=== PATIENT | male | born 1950 | race Caucasian/White ===

== ENCOUNTER 2018-11-21 08:20 | Outpatient (REF) | payer MEDICARE, SELFPAY ==
[2018-11-21 21:18] LABS: BUN 24 mg/dL (7-18); CREATININE 1.64 mg/dL (0.70-1.30); Cholesterol 168 mg/dL (50-200); Estimated GFR 42.11 (mL/min/1.73m2); HDL Cholesterol 34 mg/dL (40-60); LDL CHOLESTEROL 117 mg/dL (<100); Triglyceride 169 mg/dL (30-150)
== END 2018-11-21 08:40 ==
LOC: NCHCN 08:20
PROVIDERS: Visit Provider Nurse Practitioner Family
DX: E78.5 Hyperlipidemia, unspecified (principal); N18.3 Chronic kidney disease, stage 3 (moderate)
CPT/HCPCS: 80061; 83721; 84520; 82565

== ENCOUNTER 2019-02-23 13:45 | Outpatient (REF) | payer MEDICARE, SELFPAY ==
[2019-02-23 21:20] LABS: HCT 48.7 % (40.0-50.0); HGB 15.6 g/dL (13.5-17.5); Mean Corpuscular Hemoglobin 29.7 pg (27.0-33.0); Mean Corpuscular Volume 92.8 fL (80-95); Mean Platelet Volume 11.3 fL (8.0-11.0); Platelet Count 171 x1000/uL (130-400); RBC 5.25 m/cumm (4.50-6.00); RBC Distribution Width 14.6 % (11.8-14.1); White Blood Cell Count 8.09 k/cumm (4.4-10.8)
[2019-02-23 21:54] LABS: ALT 31 U/L (12-78); AST 15 U/L (15-37); Albumin 3.8 g/dL (3.4-5.0); Alkaline Phosphatase 108 U/L (46-116); Anion Gap 9.4 mmol/L (3-11); BUN 21 mg/dL (7-18); Bilirubin, Total 0.7 mg/dL (0.2-1.0); CO2 27.6 mmol/L (21.0-32.0); CREATININE 1.37 mg/dL (0.70-1.30); Calcium 8.6 mg/dL (8.5-10.1); Calculated LDL 72 mg/dL; Chloride 107 mmol/L (98-107); Cholesterol 136 mg/dL (50-200); Estimated GFR 51.83 (mL/min/1.73m2); Glucose 86 mg/dL (70-100); HDL Cholesterol 41 mg/dL (40-60); Magnesium 1.7 mg/dL (1.8-2.4); Potassium 4.9 mmol/L (3.5-5.1); Sodium 144 mmol/L (136-145); Total Protein 6.9 g/dL (6.4-8.2); Triglyceride 115 mg/dL (30-150); Vitamin B12 686 pg/mL (193-986)
[2019-02-24 18:51] LABS: Hemoglobin A1C 5.6 % (4.5-6.2)
[2019-02-27 10:12] LABS: PSA, Screening 1.2 ng/ml (0-4.5)
== END 2019-02-23 14:05 ==
LOC: NCHCN 13:45
PROVIDERS: Visit Provider Nurse Practitioner Family
DX: N18.3 Chronic kidney disease, stage 3 (moderate) (principal); E78.5 Hyperlipidemia, unspecified; Z12.5 Encounter for screening for malignant neoplasm of prostate; Z51.81 Encounter for therapeutic drug level monitoring; I10 Essential (primary) hypertension
CPT/HCPCS: 80053; 80061; 83721; 84153; 85027; 82607; 83036; 83735

== ENCOUNTER 2019-07-04 16:15 | Outpatient (REF) | payer MEDICARE, SELFPAY ==
[2019-07-04 21:01] LABS: Bacteria Rare HPF (Negative); C & S Indicated? C&S Done As Ordered; Casts Negative LPF (Negative); Crystals Negative HPF (Negative); Epithelial Cells Negative HPF (Negative); Mucus Negative (Negative); RBC Negative HPF (0-2); WBC Negative HPF (0-5)
== END 2019-07-04 16:35 ==
LOC: NCHCN 16:15
PROVIDERS: Visit Provider Nurse Practitioner Family
DX: R30.0 Dysuria (principal); R10.9 Unspecified abdominal pain
CPT/HCPCS: 81015; 87086

== ENCOUNTER 2020-02-05 19:56 | Outpatient (REF) | payer MEDICARE, SELFPAY ==
[2020-02-05 22:02] LABS: HCT 44.8 % (40.0-50.0); HGB 14.8 g/dL (13.5-17.5); Mean Corpuscular Hemoglobin 30.6 pg (27.0-33.0); Mean Corpuscular Volume 92.8 fL (80-95); Mean Platelet Volume 11.4 fL (8.0-11.0); Platelet Count 174 x1000/uL (130-400); RBC 4.83 m/cumm (4.50-6.00); RBC Distribution Width 13.5 % (11.8-14.1); White Blood Cell Count 6.97 k/cumm (4.4-10.8)
[2020-02-05 22:04] LABS: Anion Gap 8.7 mmol/L (3-11); BUN 27 mg/dL (7-18); CO2 26.3 mmol/L (21.0-32.0); CREATININE 1.57 mg/dL (0.70-1.30); Chloride 106 mmol/L (98-107); Estimated GFR 44.15 (mL/min/1.73m2); Glucose 102 mg/dL (74-106); Potassium 4.6 mmol/L (3.5-5.1); Sodium 141 mmol/L (136-145)
[2020-02-05 22:08] LABS: PROTEIN 14.7 mg/dL
[2020-02-05 22:09] LABS: COMMENT (LAB VIEW ONLY) 169.17 mg/dL; Prot/Crea Ur Ratio 0.08
[2020-02-05 22:14] LABS: PHOSPHORUS 2.8 mg/dL (2.6-4.7)
[2020-02-07 10:49] LABS: Parathyroid Hormone,Intact 79 pg/mL (19-88)
== END 2020-02-05 20:16 ==
LOC: NCHCN 19:56
PROVIDERS: Nurse Practitioner Family; Visit Provider Nurse Practitioner Family
DX: I10 Essential (primary) hypertension (principal); Q61.2 Polycystic kidney, adult type; G89.4 Chronic pain syndrome; M70.61 Trochanteric bursitis, right hip
CPT/HCPCS: 80048; 85027; 82565; 83970; 84100; 84156

== ENCOUNTER 2020-09-19 13:41 | Outpatient (REF) | payer MEDICARE, SELFPAY ==
[2020-09-19 12:58] LABS: HCT 46.2 % (40.0-50.0); HGB 14.7 g/dL (13.5-17.5); MCH 30.8 pg (27.0-33.0); MCHC 31.8 % (32.0-36.0); MCV 96.9 fL (80-95); MPV 10.8 fL (8.0-11.0); Platelet Count 168 10^3/uL (130-400); RBC 4.77 10^6/uL (4.36-5.78); RDW 13.2 % (11.8-14.1); RDW-SD 47.6 fL; WBC 5.64 10^3/uL (4.4-10.8)
[2020-09-19 13:39] LABS: ALT 28 U/L (16-63); AST 20 U/L (15-37); Albumin 3.8 g/dL (3.4-5.0); Alkaline Phosphatase 104 U/L (46-116); Anion Gap 5.5 mmol/L (3-11); BUN 23 mg/dL (7-18); Bilirubin, Total 0.4 mg/dL (0.2-1.0); CO2 31.5 mmol/L (21.0-32.0); CREATININE 1.7 mg/dL (0.70-1.30); Calcium 8.8 mg/dL (8.5-10.1); Calculated LDL 51 mg/dL (<100); Chloride 108 mmol/L (98-107); Cholesterol 116 mg/dL (<200); Estimated GFR 40.16 (mL/min/1.73m2); Glucose 78 mg/dL (74-106); HDL Cholesterol 36 mg/dL (40-60); Sodium 145 mmol/L (136-145); TSH 2.59 uIU/mL (0.36-3.74); Total Protein 7.2 g/dL (6.4-8.2); Triglyceride 148 mg/dL (<150); Vitamin B12 789 pg/mL (193-986)
[2020-09-19 19:37] LABS: PSA, Screening 1.7 ng/mL (0.0-4.5)
== END 2020-09-19 13:42 | disposition home or self-care (01) ==
LOC: NCHCN 13:41
PROVIDERS: Visit Provider Nurse Practitioner Family
DX: R53.83 Other fatigue (principal); N18.30 Chronic kidney disease, stage 3 unspecified; I10 Essential (primary) hypertension; R41.89 Other symptoms and signs involving cognitive functions and awareness; G89.4 Chronic pain syndrome; M54.5 Low back pain; R35.1 Nocturia; Z12.5 Encounter for screening for malignant neoplasm of prostate
CPT/HCPCS: 80053; 80061; 84153; 85027; 82607; 84443

== ENCOUNTER 2020-12-23 09:40 | Outpatient (REF) | payer MEDICARE, SELFPAY ==
[2020-12-23 13:33] LABS: HCT 46.6 % (40.0-50.0); HGB 14.9 g/dL (13.5-17.5); MCH 30.6 pg (27.0-33.0); MCV 95.7 fL (80-95); MPV 11.4 fL (8.0-11.0); Platelet Count 172 10^3/uL (130-400); RBC 4.87 10^6/uL (4.36-5.78); RDW 13.3 % (11.8-14.1); RDW-SD 47.7 fL
[2020-12-23 13:51] LABS: ALT 41 U/L (16-63); AST 30 U/L (15-37); Albumin 3.9 g/dL (3.4-5.0); Alkaline Phosphatase 102 U/L (46-116); Anion Gap 8.6 mmol/L (3-11); BUN 21 mg/dL (7-18); Bilirubin, Total 0.5 mg/dL (0.2-1.0); CO2 28.4 mmol/L (21.0-32.0); CREATININE 1.6 mg/dL (0.70-1.30); Calcium 8.8 mg/dL (8.5-10.1); Chloride 110 mmol/L (98-107); Estimated GFR 43.07 (mL/min/1.73m2); Glucose 92 mg/dL (74-106); Lipase 139 U/L (73-393); Magnesium 1.8 mg/dL (1.8-2.4); PHOSPHORUS 2.8 mg/dL (2.6-4.7); Potassium 4.6 mmol/L (3.5-5.1); Sodium 147 mmol/L (136-145); Total Protein 7.3 g/dL (6.4-8.2)
[2020-12-23 13:54] LABS: PROTEIN 11.7 mg/dL
[2020-12-23 13:57] LABS: COMMENT (LAB VIEW ONLY) 87.77 mg/dL; Prot/Crea Ur Ratio 0.13
== END 2020-12-23 09:41 | disposition home or self-care (01) ==
LOC: NCHCN 09:40
PROVIDERS: Visit Provider Nurse Practitioner Family
DX: N18.30 Chronic kidney disease, stage 3 unspecified (principal); I10 Essential (primary) hypertension; M54.5 Low back pain; G89.4 Chronic pain syndrome; Q61.2 Polycystic kidney, adult type
CPT/HCPCS: 80053; 83690; 85027; 82565; 83735; 84100; 84156

== ENCOUNTER 2021-07-09 08:24 | Outpatient (REF) | payer MEDICARE, SELFPAY ==
[2021-07-09 15:26] LABS: Anion Gap 5.3 mmol/L (3-11); BUN 27 mg/dL (7-18); CO2 31.7 mmol/L (21.0-32.0); CREATININE 1.5 mg/dL (0.70-1.30); Calcium 8.7 mg/dL (8.5-10.1); Chloride 107 mmol/L (98-107); Glucose 98 mg/dL (74-106); Potassium 4.5 mmol/L (3.5-5.1); Sodium 144 mmol/L (136-145)
== END 2021-07-09 08:25 | disposition home or self-care (01) ==
LOC: NCHCN 08:24
PROVIDERS: Visit Provider Nurse Practitioner Family
DX: I10 Essential (primary) hypertension (principal); I25.10 Atherosclerotic heart disease of native coronary artery without angina pectoris
CPT/HCPCS: 80048

== ENCOUNTER 2021-12-04 18:29 | Outpatient (REF) | payer MEDICARE, SELFPAY ==
[2021-12-04 13:45] LABS: HCT 47.1 % (40.0-50.0); MCH 30.2 pg (27.0-33.0); MCHC 31.8 % (32.0-36.0); MCV 95 fL (80-95); MPV 11.1 fL (8.0-11.0); Platelet Count 164 10^3/uL (130-400); RBC 4.96 10^6/uL (4.36-5.78); RDW 13.6 % (11.8-14.1); RDW-SD 47.8 fL; WBC 5.75 10^3/uL (4.4-10.8)
[2021-12-04 13:56] LABS: Anion Gap 5.6 mmol/L (3-11); BUN 23 mg/dL (7-18); CO2 29.4 mmol/L (21.0-32.0); CREATININE 1.6 mg/dL (0.70-1.30); Calcium 8.7 mg/dL (8.5-10.1); Chloride 106 mmol/L (98-107); Estimated GFR 42.95 (mL/min/1.73m2); Glucose 115 mg/dL (74-106); Sodium 141 mmol/L (136-145)
[2021-12-05 11:33] LABS: Hepatitis C Ab w Rflx HCV PCR Negative (Negative)
[2021-12-05 11:37] LABS: HIV-1/2 Ag & Ab Screen Negative (Negative)
== END 2021-12-04 18:30 | disposition home or self-care (01) ==
LOC: NCHCN 18:29
PROVIDERS: Visit Provider Nurse Practitioner Family
DX: R41.3 Other amnesia (principal); R53.83 Other fatigue; Z11.4 Encounter for screening for human immunodeficiency virus [HIV]; Z11.59 Encounter for screening for other viral diseases
CPT/HCPCS: 80048; 85027; 86803; 87389

== ENCOUNTER 2022-01-29 18:33 | Outpatient (REF) | payer MEDICARE, SELFPAY ==
[2022-01-29 20:44] LABS: Abs Immature Grans 0.02 10^3/uL (0.0-0.06); Absolute Basophil Count 0.02 10^3/uL (0.0-0.2); Absolute Eosinophil Count 0.23 10^3/uL (0.0-0.7); Absolute Lymphocyte Count 1.82 10^3/uL (1.2-3.4); Absolute Monocyte Count 0.63 10^3/uL (0.1-0.8); Absolute Neutrophil Count 4.11 10^3/uL (1.2-6.7); Basophils % 0.3; Eosinophils % 3.4; HCT 45.4 % (40.0-50.0); HGB 14.9 g/dL (13.5-17.5); Immature Grans % 0.3; Lymphocytes % 26.6; MCH 30.4 pg (27.0-33.0); MCHC 32.8 % (32.0-36.0); MCV 93 fL (80-95); Monocytes % 9.2; Neutrophils % 60.2; Platelet Count 172 10^3/uL (130-400); RDW 13.3 % (11.8-14.1); RDW-SD 45.1 fL; WBC 6.83 10^3/uL (4.4-10.8)
[2022-01-29 20:51] LABS: Anion Gap 8.9 mmol/L (3-11); BUN 25 mg/dL (7-18); CO2 27.1 mmol/L (21.0-32.0); CREATININE 1.5 mg/dL (0.70-1.30); Calcium 8.8 mg/dL (8.5-10.1); Chloride 104 mmol/L (98-107); Estimated GFR 46.27 (mL/min/1.73m2); Glucose 75 mg/dL (74-106); Potassium 4.7 mmol/L (3.5-5.1); Sodium 140 mmol/L (136-145)
== END 2022-01-29 18:34 | disposition home or self-care (01) ==
LOC: NCHCN 18:33
PROVIDERS: Visit Provider Nurse Practitioner Family
DX: R41.3 Other amnesia (principal); R53.83 Other fatigue; I10 Essential (primary) hypertension
CPT/HCPCS: 80048; 85025

== ENCOUNTER 2022-04-10 18:54 | Outpatient (REF) | payer MEDICARE, SELFPAY ==
[2022-04-10 15:09] LABS: Anion Gap 6.2 mmol/L (3-11); BUN 18 mg/dL (7-18); CO2 29.8 mmol/L (21.0-32.0); CREATININE 1.6 mg/dL (0.70-1.30); Calcium 8.8 mg/dL (8.5-10.1); Chloride 105 mmol/L (98-107); Estimated GFR 46.06 (mL/min/1.73m2); Glucose 93 mg/dL (74-106); Magnesium 1.7 mg/dL (1.8-2.4); Potassium 4.6 mmol/L (3.5-5.1); Sodium 141 mmol/L (136-145)
== END 2022-04-10 18:55 | disposition home or self-care (01) ==
LOC: NCHCN 18:54
PROVIDERS: Visit Provider Nurse Practitioner Family
DX: E87.5 Hyperkalemia (principal); N18.9 Chronic kidney disease, unspecified
CPT/HCPCS: 80048; 83735

== ENCOUNTER 2022-06-03 15:01 | Outpatient (REF) | payer MEDICARE, SELFPAY ==
[2022-06-03 16:56] LABS: Anion Gap 7.5 mmol/L (3-11); BUN 21 mg/dL (7-18); CO2 28.5 mmol/L (21.0-32.0); CREATININE 1.6 mg/dL (0.70-1.30); Chloride 106 mmol/L (98-107); Estimated GFR 46.06 (mL/min/1.73m2); Glucose 108 mg/dL (74-106); Magnesium 1.7 mg/dL (1.8-2.4); Potassium 4.9 mmol/L (3.5-5.1); Sodium 142 mmol/L (136-145)
== END 2022-06-03 15:02 | disposition home or self-care (01) ==
LOC: LBN 15:01
PROVIDERS: Visit Provider Neurological Surgery
DX: Z01.818 Encounter for other preprocedural examination (principal)
CPT/HCPCS: 80048; 83735

== ENCOUNTER 2023-06-01 13:33 | Outpatient (REF) | payer MEDICARE, SELFPAY ==
[2023-06-01 15:02] LABS: Hemoglobin A1C 5.6 % (<5.7)
[2023-06-01 15:28] LABS: Anion Gap 7.1 mmol/L (3-11); BUN 23 mg/dL (7-18); CO2 27.9 mmol/L (21.0-32.0); CREATININE 1.7 mg/dL (0.70-1.30); Chloride 108 mmol/L (98-107); Estimated GFR 42.57 (mL/min/1.73m2); Glucose 119 mg/dL (74-106); Potassium 4.8 mmol/L (3.5-5.1); Sodium 143 mmol/L (136-145); TSH 2.49 uIU/mL (0.36-3.74); Vitamin B12 617 pg/mL (193-986)
== END 2023-06-01 13:34 | disposition home or self-care (01) ==
LOC: NCHCN 13:33
PROVIDERS: Nurse Practitioner Family; PCP Nurse Practitioner Family; Visit Provider Nurse Practitioner Family
DX: R73.9 Hyperglycemia, unspecified (principal); I10 Essential (primary) hypertension
CPT/HCPCS: 80048; 82607; 83036; 84443; 84550

== ENCOUNTER 2023-06-28 18:15 | Outpatient (REF) | payer MEDICARE, SELFPAY ==
[2023-06-28 21:28] LABS: HCT 43.8 % (40.0-50.0); HGB 13.7 g/dL (13.5-17.5); MCH 28.6 pg (27.0-33.0); MCHC 31.3 % (32.0-36.0); MCV 91 fL (80-95); MPV 11.2 fL (8.0-11.0); Platelet Count 174 10^3/uL (130-400); RBC 4.79 10^6/uL (4.36-5.78); RDW 14.9 % (11.8-14.1); RDW-SD 50.6 fL; WBC 6.49 10^3/uL (4.4-10.8)
[2023-06-28 21:33] LABS: Magnesium 1.8 mg/dL (1.8-2.4)
== END 2023-06-28 18:16 | disposition home or self-care (01) ==
LOC: NCHCN 18:15
PROVIDERS: PCP Nurse Practitioner Family; Visit Provider Registered Nurse
DX: I10 Essential (primary) hypertension (principal)
CPT/HCPCS: 85027; 83735

== ENCOUNTER 2024-02-22 17:25 | Outpatient (REF) | payer MEDICARE, SELFPAY ==
[2024-02-22 14:59] LABS: Abs Immature Grans 0.01 10^3/uL (0.0-0.06); Absolute Basophil Count 0.01 10^3/uL (0.0-0.2); Absolute Lymphocyte Count 1.52 10^3/uL (1.2-3.4); Absolute Monocyte Count 0.45 10^3/uL (0.1-0.8); Absolute Neutrophil Count 2.51 10^3/uL (1.2-6.7); Basophils % 0.2 %; Eosinophils % 4.3 %; HCT 47.1 % (40.0-50.0); HGB 14.9 g/dL (13.5-17.5); Immature Grans % 0.2 %; Lymphocytes % 32.3 %; MCH 29.9 pg (27.0-33.0); MCHC 31.6 % (32.0-36.0); MCV 95 fL (80-95); MPV 10.8 fL (8.0-11.0); Monocytes % 9.6 %; Neutrophils % 53.4 %; Platelet Count 162 10^3/uL (130-400); RBC 4.98 10^6/uL (4.36-5.78); RDW 13.6 % (11.8-14.1); RDW-SD 47.3 fL
[2024-02-22 15:09] LABS: ESR 9 mm/hr (0-20)
[2024-02-22 16:07] LABS: ALT 16 U/L (16-63); AST 17 U/L (15-37); Albumin 3.8 g/dL (3.4-5.0); Alkaline Phosphatase 113 U/L (46-116); Anion Gap 7.8 mmol/L (3-11); BUN 18 mg/dL (7-18); CO2 31.2 mmol/L (21.0-32.0); CREATININE 1.6 mg/dL (0.70-1.30); Chloride 106 mmol/L (98-107); Glucose 99 mg/dL (74-106); Potassium 4.9 mmol/L (3.5-5.1); Sodium 145 mmol/L (136-145); Total Protein 7.3 g/dL (6.4-8.2); Vitamin B12 848 pg/mL (193-986)
[2024-02-22 17:00] LABS: C-Reactive Protein 0.54 mg/dL (<or=0.5)
[2024-02-22 22:19] LABS: Rheumatoid Factor <8.6 IU/mL (<12.0)
[2024-02-22 23:16] LABS: PSA, Screening 2.3 ng/mL (<=6.5)
[2024-02-23 10:21] LABS: Cyclic Citrullinated Peptide <2.5 U/mL (<5.0)
[2024-02-23 11:38] LABS: Lyme Ab w Rflx to Lyme Confirm Negative (Negative)
[2024-02-24 20:19] LABS: Anaplasma phagocytophilum Negative (Negative); B. miyamotoi PCR Negative (Negative); Babesia divergens/MO-1 Negative (Negative); Babesia duncani Negative (Negative); Babesia microti Negative (Negative); Ehrlichia chaffeensis Negative (Negative); Ehrlichia ewingii/canis Negative (Negative); Ehrlichia muris eauclairensis Negative (Negative)
== END 2024-02-22 17:26 | disposition home or self-care (01) ==
LOC: NCHCN 17:25
PROVIDERS: PCP Nurse Practitioner Family; Visit Provider Nurse Practitioner Family
DX: I10 Essential (primary) hypertension (principal); N40.0 Benign prostatic hyperplasia without lower urinary tract symptoms; Z79.01 Long term (current) use of anticoagulants; M79.18 Myalgia, other site; Z12.5 Encounter for screening for malignant neoplasm of prostate
CPT/HCPCS: 80053; 84153; 85652; 86200; 87798; 82607; 85025; 86140; 86431; 86618

== ENCOUNTER 2024-08-17 09:57 | Outpatient (REF) | payer MEDICARE, SELFPAY ==
[2024-08-17 14:10] LABS: HCT 49.2 % (40.0-50.0); HGB 15.6 g/dL (13.5-17.5); MCH 29.9 pg (27.0-33.0); MCHC 31.7 % (32.0-36.0); MCV 94 fL (80-95); MPV 10.6 fL (8.0-11.0); Platelet Count 171 10^3/uL (130-400); RBC 5.21 10^6/uL (4.36-5.78); RDW 13.6 % (11.8-14.1); RDW-SD 47.6 fL; WBC 5.23 10^3/uL (4.4-10.8)
[2024-08-17 14:24] LABS: Hemoglobin A1C 5.4 % (<5.7)
[2024-08-17 14:30] LABS: ALT 20 U/L (16-63); AST 20 U/L (15-37); Albumin 3.7 g/dL (3.4-5.0); Alkaline Phosphatase 101 U/L (46-116); Anion Gap 4.3 mmol/L (3-11); BUN 27 mg/dL (7-18); Bilirubin, Total 0.46 mg/dL (0.2-1.0); CO2 30.7 mmol/L (21.0-32.0); CREATININE 1.7 mg/dL (0.70-1.30); Calcium 9.5 mg/dL (8.5-10.1); Calculated LDL 154 mg/dL (<100); Chloride 109 mmol/L (98-107); Cholesterol 227 mg/dL (<200); Glucose 89 mg/dL (74-106); HDL Cholesterol 41 mg/dL (40-60); Potassium 5.3 mmol/L (3.5-5.1); Sodium 144 mmol/L (136-145); TSH 1.91 uIU/mL (0.36-3.74); Total Protein 7.4 g/dL (6.4-8.2); Triglyceride 163 mg/dL (<150)
== END 2024-08-17 09:58 | disposition home or self-care (01) ==
LOC: NCHCN 09:57
PROVIDERS: PCP Nurse Practitioner Family; Visit Provider Nurse Practitioner Family
DX: N18.30 Chronic kidney disease, stage 3 unspecified (principal); R73.03 Prediabetes
CPT/HCPCS: 80053; 80061; 85027; 83036; 84443

== ENCOUNTER 2025-05-08 21:09 | Outpatient (REF) | payer MEDICARE, SELFPAY ==
[2025-05-08 21:36] LABS: HCT 44.2 % (40.0-50.0); HGB 14.1 g/dL (13.5-17.5); MCH 30.3 pg (27.0-33.0); MCHC 31.9 % (32.0-36.0); MCV 95 fL (80-95); MPV 10.6 fL (8.0-11.0); Platelet Count 173 10^3/uL (130-400); RBC 4.66 10^6/uL (4.36-5.78); RDW 13.7 % (11.8-14.1); RDW-SD 47.5 fL; WBC 6.08 10^3/uL (4.4-10.8)
[2025-05-08 21:51] LABS: ALT 19 U/L (16-63); AST 20 U/L (15-37); Albumin 3.7 g/dL (3.4-5.0); Alkaline Phosphatase 101 U/L (46-116); Anion Gap 8.9 mmol/L (3-11); BUN 20 mg/dL (7-18); Bilirubin, Total 0.6 mg/dL (0.2-1.0); CO2 30.1 mmol/L (21.0-32.0); Calcium 8.7 mg/dL (8.5-10.1); Calculated LDL 73 mg/dL (<100); Chloride 105 mmol/L (98-107); Cholesterol 131 mg/dL (<200); Estimated GFR 42.04 (mL/min/1.73m2); Glucose 90 mg/dL (74-106); HDL Cholesterol 37 mg/dL (>or=40); Hemoglobin A1C 5.4 % (<5.7); Potassium 4.5 mmol/L (3.5-5.1); Sodium 144 mmol/L (136-145); Total Protein 7.1 g/dL (6.4-8.2); Triglyceride 105 mg/dL (<150)
[2025-05-09 19:07] LABS: PSA, Diagnostic 2.7 ng/mL (<=6.5)
== END 2025-05-08 21:10 | disposition home or self-care (01) ==
LOC: NCHCN 21:09
PROVIDERS: PCP Nurse Practitioner Family; Visit Provider Nurse Practitioner Family
DX: N18.30 Chronic kidney disease, stage 3 unspecified (principal); R73.03 Prediabetes; N40.0 Benign prostatic hyperplasia without lower urinary tract symptoms
CPT/HCPCS: 80053; 80061; 85027; 83036; 84153